=== PATIENT | female | born 1970 | race Caucasian/White ===

== ENCOUNTER 2018-02-08 13:26 | Emergency (ER) | payer BC ==
[2018-02-08] MEDS: KETOROLAC 30 MG INJ IM (14:26)
[2018-02-08] MEDS: predniSONE 20 MG TAB PO (14:26)
[2018-02-08] MEDS: morphine LIQ (10 MG/5 ML) CUP PO (14:27)
== END 2018-02-08 15:04 | disposition home or self-care (01) ==
LOC: FTE 15:04
DX: M54.5 Low back pain (principal)
CPT/HCPCS: 81025; 96372; 99284-25